=== PATIENT | male | born 1940 | race Caucasian/White ===

== ENCOUNTER 2018-01-10 06:49 | Day surgery (SDC) | payer MEDICARE ==
[~2018-01-10] VITALS: Ht 177.8 cm; Wt 112.7 kg
[~2018-01-10 06:49] MED LIST: ALLO300T2 PO; ASPI-555 PO; HYDR25TA PO; LEVO25TA54 PO; METF10004 PO; METO50TA9 PO; ROSU5TAB PO; SODIUM CHLORIDE 0.9% 1000ML 1,000 ML IV ONE; TERA5CAP4 PO; VALS160T2 PO; WARF-57 PO
[2018-01-10 07:37] LABS: INR 1.22 (0.85-1.15); PROTHROMBIN TIME 12.8 SEC (9.6-11.6)
[2018-01-10 07:39] VITALS: BP 146/83
[2018-01-10] MEDS ORDERED: PROPOFOL 10 MG/ML 20ML VIAL IV ONE (08:32)
[2018-01-10 09:03] VITALS: BP 102/48
== END 2018-01-10 09:34 | disposition home or self-care (01) ==
LOC: DAH 06:49 → ENDO 06:49
PROVIDERS: ATTEND Internal Medicine Gastroenterology
DX: Z09 Encounter for follow-up examination after completed treatment for conditions other than malignant neoplasm (principal); D12.5 Benign neoplasm of sigmoid colon; Z86.010 Personal history of colon polyps; I10 Essential (primary) hypertension; E78.5 Hyperlipidemia, unspecified; I25.10 Atherosclerotic heart disease of native coronary artery without angina pectoris; I48.91 Unspecified atrial fibrillation; Z80.0 Family history of malignant neoplasm of digestive organs; Z68.42 Body mass index [BMI] 45.0-49.9, adult; Z95.0 Presence of cardiac pacemaker; G47.33 Obstructive sleep apnea (adult) (pediatric); M19.90 Unspecified osteoarthritis, unspecified site; E03.9 Hypothyroidism, unspecified; Z79.899 Other long term (current) drug therapy; Z79.01 Long term (current) use of anticoagulants; Z88.0 Allergy status to penicillin; Z98.890 Other specified postprocedural states; Z82.49 Family history of ischemic heart disease and other diseases of the circulatory system; K57.30 Diverticulosis of large intestine without perforation or abscess without bleeding
CPT/HCPCS: 36415; 45385; 85610; 88305; 93005; A4606; J2704; J7030

== ENCOUNTER → 2018-02-09 | Outpatient (CLI) | payer MEDICARE ==
[~2018-02-09] MED LIST changes: -SODIUM CHLORIDE 0.9% 1000ML 1,000 ML IV ONE; -WARF-57 PO
== END | disposition home or self-care (01) ==
LOC: OIH 08:42
PROVIDERS: ATTEND Internal Medicine Cardiovascular Disease
DX: I08.1 Rheumatic disorders of both mitral and tricuspid valves (principal)
CPT/HCPCS: 93306

== ENCOUNTER → 2018-09-09 | Outpatient (CLI) | payer MEDICARE ==
[~2018-09-09] MED LIST changes: +METF-446 PO; -METF10004 PO
== END | disposition home or self-care (01) ==
LOC: RAH 11:28
PROVIDERS: ATTEND Internal Medicine Endocrinology, Diabetes & Metabolism
DX: E04.2 Nontoxic multinodular goiter (principal)
CPT/HCPCS: 76536

== ENCOUNTER → 2019-02-01 | Outpatient (CLI) | payer MEDICARE | END | disposition home or self-care (01) | LOC: SHCH 15:50 | PROVIDERS: ATTEND Internal Medicine Cardiovascular Disease | DX: I08.3 Combined rheumatic disorders of mitral, aortic and tricuspid valves (principal); I27.20 Pulmonary hypertension, unspecified | CPT/HCPCS: 93306 ==

== ENCOUNTER → 2019-02-16 | Outpatient (CLI) | payer MEDICARE | END | disposition home or self-care (01) | LOC: RAH 07:33 | PROVIDERS: ATTEND Family Medicine | DX: K76.9 Liver disease, unspecified (principal); J90 Pleural effusion, not elsewhere classified; K75.9 Inflammatory liver disease, unspecified; J98.11 Atelectasis; R18.8 Other ascites | CPT/HCPCS: 76700 ==

== ENCOUNTER 2019-03-07 05:51 | Day surgery (SDC) | payer MEDICARE ==
[2019-03-03 09:00] VITALS: BP 111/79
[2019-03-03 09:12] LABS: BASOPHILS % (AUTO) 0.7 % (0.0-5.0); EOSINOPHILS % (AUTO) 2.7 % (0.0-8.0); HEMATOCRIT 44.9 % (42-54); MEAN CORPUSCULAR HEMOGLOBIN 30.5 pg (27.0-33.0); MEAN CORPUSCULAR HGB CONC 32.9 g/dL (32.0-36.0); MEAN CORPUSCULAR VOLUME 92.7 fL (79-99); MONOCYTES % (AUTO) 9.5 % (3.0-13.0); NEUTROPHILS % (AUTO) 62.1 % (40.0-77.0); NUCLEATED RED BLOOD CELLS 0.1 % (0.0-0.19); PLATELET COUNT (AUTO) 173 K/uL (130-400); RED BLOOD CELL COUNT(AUTO) 4.84 MIL/uL (4.50-6.20); RED CELL DISTRIBUTION WIDTH 18.5 % (11.0-15.5); WHITE BLOOD COUNT (AUTO) 6.8 K/uL (4.8-10.8)
[2019-03-03 09:12] LABS: APPEARANCE,URINE Clear (CLEAR); BILIRUBIN,URINE Negative (NEGATIVE); COLOR,URINE Dark Yellow (YELLOW); GLUCOSE, URINE (UA) 500 mg/dL (NEGATIVE); KETONES,URINE Negative (NEGATIVE); LEUKOCYTE ESTERASE ,URINE Small (NEGATIVE); NITRATE,URINE Positive (NEGATIVE); OCCULT BLOOD,URINE Small (NEGATIVE); PH,URINE 5.5 (5.0-8.0); PROTEIN,URINE 300 mg/dL (NEGATIVE)
[2019-03-03 09:19] LABS: CREATININE 1.5 mg/dL (0.5-1.5); POTASSIUM 4.4 mmol/L (3.5-5.1)
[2019-03-03 09:25] LABS: INR 3.29 (0.85-1.15); PARTIAL THROMBOPLASTIN TIME 40.4 SEC (26.3-35.5); PROTHROMBIN TIME 33.7 SEC (9.6-11.6)
[2019-03-03 09:49] LABS: BACTERIA,URINE Moderate /HPF (None Seen)
--- NOTE | 2019-03-03 16:44 | NUR ---
ABNORMAL LABS REPORTED ABNORMAL LABS TO ANA GARCIA FOR DR. HERNANDEZ BUN, CREATINE, PT, INR, PTT, UA. ORDERS TO REPEAT PT, INR, PTT AND UA MORNING OF PROCEDURE. Addendum: 03/03/19 at 1649 by YAMILA JIMENEZ RN RN SEND UA FOR CULTURE
[2019-03-07] VITALS (12 sets, daily range): BP systolic 119–137; BP diastolic 8–94
[~2019-03-07] VITALS: Ht 179.1 cm; Wt 109.2 kg
[~2019-03-07 05:51] MED LIST changes: -ASPI-555 PO; +EMPA10TA PO; +FURO20TA4 PO; +GLIM4TAB3 PO; -HYDR25TA PO; +IRBE150T27 PO; -LEVO25TA54 PO; +LEVO50TA11 PO; +MAGN500C15 PO; +METO100T7 PO; -METO50TA9 PO; +POTA10TA11 PO; +ROSU10TA22 PO; -ROSU5TAB PO; +SODIUM CHLORIDE 0.9% 1000ML 1,000 ML IV SCH; -TERA5CAP4 PO; -VALS160T2 PO; +VITAMIN B COMP PO; +WARF-57 PO
[2019-03-07 06:28] LABS: INR 1.39 (0.85-1.15); PARTIAL THROMBOPLASTIN TIME 31.5 SEC (26.3-35.5); PROTHROMBIN TIME 14.5 SEC (9.6-11.6)
[2019-03-07 06:57] LABS: APPEARANCE,URINE Clear (CLEAR); BILIRUBIN,URINE Negative (NEGATIVE); COLOR,URINE Yellow (YELLOW); GLUCOSE, URINE (UA) 250 mg/dL (NEGATIVE); KETONES,URINE Negative (NEGATIVE); LEUKOCYTE ESTERASE ,URINE Negative (NEGATIVE); NITRATE,URINE Negative (NEGATIVE); OCCULT BLOOD,URINE Negative (NEGATIVE); PROTEIN,URINE Trace mg/dL (NEGATIVE); UROBILINOGEN,URINE 0.2 mg/dL (0.2-1.0)
[2019-03-07] MEDS ORDERED: WARF-57 PO (07:15)
[2019-03-07] MEDS ORDERED: WARF7.5T49 PO (07:15)
[2019-03-07] MEDS ORDERED: DOCU100T PO (07:15)
[2019-03-07] MEDS ORDERED: MULT-1077 PO (07:15)
[2019-03-07 07:22] LABS: RBC,URINE 0-1 /HPF (0-1); WBC,URINE 0-1 /HPF (0-1)
[2019-03-07 07:23] LABS: BACTERIA,URINE None Seen /HPF (None Seen); SQUAMOUS EPITHELIAL CELL,UR 0-2 /HPF (0-2)
--- NOTE | 2019-03-07 08:48 | NUR ---
REPEAT LABS ANA COCHRAN NOTIFIED PT'S RPT UA FROM TODAY IS NEGATIVE FOR NITRATES AND LEUKEST, URINE CULTURE FROM 03/03/19 FINAL RESULTS GRAM NEG RODS. NO FURTHER ORDERS GIVEN.
--- NOTE | 2019-03-07 09:40 | NUR ---
PT/PTT PT/PTT [place] TODAY REPORTED TO DR. Lamont HERNANDEZ PT 14.5, INR 1.39. NO FURTHER ORDERS, MAY PROCEED WITH PLANNED PROCEDURE.
[2019-03-07] MEDS ORDERED: MIDAZOLAM HCL 1 MG/ML 2ML VIAL ONE ×2 (12:06→12:33)
[2019-03-07] MEDS ORDERED: CEFAZOLIN SODIUM 1 GM VIAL ONE (12:06)
[2019-03-07] MEDS ORDERED: MEPERIDINE-PF 25 MG/ML SYG ONE ×2 (12:06→12:33)
[2019-03-07] MEDS ORDERED: LIDOCAINE HCL 1% MDV 50ML VIAL ONE (12:06)
[2019-03-07] MEDS ORDERED: BUPIVACAINE/PF 0.25% 30ML VIAL IJ ONE (12:06)
--- NOTE | 2019-03-07 12:08 | NUR ---
TO CHANNEL SPECIALIST PT TAKEN TO CHANNEL SPECIALIST VIA BED BY NAEEM MARIE. PT STABLE. VOIDED PRIOR TO TRANSFER.
[2019-03-07] MEDS ORDERED: VANCOMYCIN 1GM+NS 250ML 500 ML IV ONE (12:20)
[2019-03-07] MEDS ORDERED: THROMBIN-JMI 5000 UNIT/VIAL TP ONE (12:52)
[2019-03-07] MEDS ORDERED: DEXTROSE 50%-WATER 50 ML DISP.SYRIN IV PRN (13:45)
[2019-03-07] MEDS ORDERED: ONDANSETRON HCL 4 MG/2 ML VIAL IV PRN (13:45)
[2019-03-07] MEDS ORDERED: ACETAMINOPHEN-CODEINE 300/30MG TAB PO PRN ×2 (13:45)
--- NOTE | 2019-03-07 14:05 | NUR ---
RECEIVE PT RECEIVED FROM COSMETICS MACHINE OPERATOR VIA BED AWAKE ALERT ORIENTED, PRESSURE DRESSING TO LEFT CHEST IN PLACE, GAUZE, OPSITE DRESSING IN PLACE, DRY AND INTACT, VERY SCANT LIGHT PINKISH DISCHARGE, SITE SOFT, NO BLEEDING, NO HEMATOMA OR BRUISING NOTED. ICE PACK PLACED, KEPT PT ON BEDREST, HEAD OF BED ELEVATED.
[2019-03-07] MEDS ORDERED: PHARMACY COMMUNICATION MISC SCH (15:00)
--- NOTE | 2019-03-07 16:00 | NUR ---
COUMADIN PER DR. HERNANDEZ, PT MAY RESUME COUMADIN TOMORROW.
[2019-03-07] MEDS ORDERED: INSULIN HUMULIN R 100 UNIT/ML 3ML SQ SCH (16:30)
[2019-03-07] MEDS ORDERED: LEVOFLOXACIN 500 MG/D5W 100 ML 100 ML IV SCH (18:00)
--- NOTE | 2019-03-07 18:20 | NUR ---
ACTIVITY PT ASSISTED TO BATHROOM, AMBULATED WITHOUT ANY PROBLEMS, VOIDED CLEAR YELLOW URINE, GOOD AMOUNT.
--- NOTE | 2019-03-07 18:45 | NUR ---
PRESSURE DRESSING REMOVED PRESSURE DRESSING TO LEFT CHEST REMOVED, GAUZE/OPSITE DRESSING REMAINS DRY AND INTACT, NO BLEEDING, NO HEMATOMA NOTED, SITE SOFT. PT INSTRUCTED NOT TO ELEVATE LEFT ARM ABOVE SHOULDER LEVEL, NOT TO USE LEFT ARM FOR HEAVY LIFTING UNTIL CLEARED BY DR. HERNANDEZ. PT VERBALIZED UNDERSTANDING.
--- NOTE | 2019-03-07 18:55 | NUR ---
DISCHARGE PT DISCHARGED VIA WHEELCHAIR WITH . PT STABLE. NO COMPLAINTS MADE. BI-V INCISION SITE TO LEFT CHEST SOFT, DRESSING DRY AND INTACT, NO BLEEDING NO HEMATOMA NOTED. DISCHARGE INSTRUCTIONS GIVEN TO . ALSO INSTRUCTED TO FOLLOW DR. HERNANDEZ'S VERBAL INSTRUCTIONS ON RESTRICTIONS TO LEFT ARM. VERBALIZED UNDERSTANDING.
== END 2019-03-07 18:55 | disposition home or self-care (01) ==
LOC: DAH 05:51
PROVIDERS: ATTEND Internal Medicine Cardiovascular Disease
DX: T82.121A Displacement of cardiac pulse generator (battery), initial encounter (principal); I48.91 Unspecified atrial fibrillation; I11.0 Hypertensive heart disease with heart failure; I50.9 Heart failure, unspecified; I25.10 Atherosclerotic heart disease of native coronary artery without angina pectoris; E78.5 Hyperlipidemia, unspecified; Z72.89 Other problems related to lifestyle; Z82.49 Family history of ischemic heart disease and other diseases of the circulatory system; Z83.3 Family history of diabetes mellitus; Z87.891 Personal history of nicotine dependence; Z79.84 Long term (current) use of oral hypoglycemic drugs; Z95.0 Presence of cardiac pacemaker; Z79.01 Long term (current) use of anticoagulants; Y65.8 Other specified misadventures during surgical and medical care; Y92.89 Other specified places as the place of occurrence of the external cause
CPT/HCPCS: 33223; 36415 ×2; 80048; 81001 ×2; 82948 ×2; 85025; 85610 ×2; 85730 ×2; 87077; 87088; 87186; 93005; A4606; J1956; J2175 ×2; J2250 ×2; J3370; J3490 ×3; J7030; 36591; 99156; 99157; J0690

== ENCOUNTER 2019-08-08 05:44 | Day surgery (SDC) | payer MEDICARE ==
[~2019-08-08] VITALS: Ht 177.8 cm; Wt 97.0 kg
[~2019-08-08 05:44] MED LIST changes: +DOCU100T PO; -GLIM4TAB3 PO; +GLIM4TAB5 PO; +MULT-1077 PO; -ROSU10TA22 PO; -SODIUM CHLORIDE 0.9% 1000ML 1,000 ML IV SCH; +WARF7.5T49 PO; +ZARO5 PO
[2019-08-08] MEDS ORDERED: SODIUM CHLORIDE 0.9% 1000ML 1,000 ML IV ONE (06:14)
[2019-08-08 06:36] LABS: BASOPHILS % (AUTO) 0.4 % (0.0-5.0); EOSINOPHILS % (AUTO) 2.9 % (0.0-8.0); HEMATOCRIT 42.7 % (42-54); LYMPHOCYTES % (AUTO) 28.1 % (21.0-51.0); MEAN CORPUSCULAR HEMOGLOBIN 31.7 pg (27.0-33.0); MEAN CORPUSCULAR HGB CONC 33.2 g/dL (32.0-36.0); MEAN CORPUSCULAR VOLUME 95.7 fL (79-99); MONOCYTES % (AUTO) 10.1 % (3.0-13.0); NEUTROPHILS % (AUTO) 58.5 % (40.0-77.0); PLATELET COUNT (AUTO) 178 K/uL (130-400); RED BLOOD CELL COUNT(AUTO) 4.47 MIL/uL (4.50-6.20); WHITE BLOOD COUNT (AUTO) 7.2 K/uL (4.8-10.8)
[2019-08-08 06:40] VITALS: BP 102/70
[2019-08-08 06:55] LABS: INR 1.06 (0.85-1.15); PROTHROMBIN TIME 11.1 SEC (9.6-11.6)
[2019-08-08] MEDS ORDERED: PROPOFOL 10 MG/ML 20ML VIAL IV ONE (07:18)
[2019-08-08 07:25] VITALS: BP 97/63
[2019-08-08 07:30] VITALS: BP 97/65
[2019-08-08 07:35] VITALS: BP 100/65
[2019-08-08 07:40] VITALS: BP 101/58
[2019-08-08 07:45] VITALS: BP 101/59
--- NOTE | 2019-08-08 07:55 | NUR ---
DC PT DC HOME VIA WC, NO DISTRESS NOTED , DENIED ANY PAIN OR DISCOMFORTS. PT ACCOMPANIED BY SPOUSE. DC INTRUCTIONS REINFORCED TO CONTINUE HOME MEDS. TO RESUME COUMADIN IN 24 HRS., INSTRUCTED ON NEW MED PRESCRIBED AND TO F/U WITH DR. PLEITEZ. PT / SPOUSE VERBALIZED UNDERSTANDING.
== END 2019-08-08 07:55 | disposition home or self-care (01) ==
LOC: ENDO 05:44 → DAH 05:44 → ENDO 07:55
PROVIDERS: ATTEND Internal Medicine Gastroenterology
DX: K74.60 Unspecified cirrhosis of liver (principal); K29.50 Unspecified chronic gastritis without bleeding; K25.9 Gastric ulcer, unspecified as acute or chronic, without hemorrhage or perforation; R18.8 Other ascites; K59.01 Slow transit constipation; E03.9 Hypothyroidism, unspecified; M19.90 Unspecified osteoarthritis, unspecified site; I49.5 Sick sinus syndrome; M10.9 Gout, unspecified; E11.9 Type 2 diabetes mellitus without complications; E78.5 Hyperlipidemia, unspecified; I48.20 Chronic atrial fibrillation, unspecified; E11.22 Type 2 diabetes mellitus with diabetic chronic kidney disease; I13.0 Hypertensive heart and chronic kidney disease with heart failure and stage 1 through stage 4 chronic kidney disease, or unspecified chronic kidney disease; N18.9 Chronic kidney disease, unspecified; I50.9 Heart failure, unspecified; Z86.010 Personal history of colon polyps; Z90.89 Acquired absence of other organs; Z95.0 Presence of cardiac pacemaker; Z85.46 Personal history of malignant neoplasm of prostate
CPT/HCPCS: 36415; 43239; 82948 ×2; 85025; 85610; 88305; A4215; A4221; A4222; A4223; A4606; A4615; A4663; J2704; J7030

== ENCOUNTER → 2019-10-09 | Outpatient (CLI) | payer MEDICARE | END | disposition home or self-care (01) | LOC: RAH 10:22 | PROVIDERS: ATTEND Internal Medicine Endocrinology, Diabetes & Metabolism | DX: E04.2 Nontoxic multinodular goiter (principal) | CPT/HCPCS: 76536 ==

== ENCOUNTER → 2020-11-27 | Outpatient (CLI) | payer MEDICARE ==
[~2020-11-27] MED LIST changes: +GLIM4TAB36 PO; -GLIM4TAB5 PO; +IRBE150T24 PO; -IRBE150T27 PO
== END | disposition home or self-care (01) ==
LOC: SHCH 11:08
PROVIDERS: ATTEND Internal Medicine Cardiovascular Disease
DX: I08.3 Combined rheumatic disorders of mitral, aortic and tricuspid valves (principal); I65.23 Occlusion and stenosis of bilateral carotid arteries
CPT/HCPCS: 93306; 93356; 93880

== ENCOUNTER 2020-12-18 06:19 | Day surgery (SDC) | payer MEDICARE ==
[2020-12-16 09:39] VITALS: BP 105/71
[2020-12-16 12:29] LABS: APPEARANCE,URINE Clear (CLEAR); BILIRUBIN,URINE Negative (NEGATIVE); COLOR,URINE Yellow (YELLOW); GLUCOSE, URINE (UA) 500 mg/dL (NEGATIVE); KETONES,URINE Negative (NEGATIVE); LEUKOCYTE ESTERASE ,URINE Trace (NEGATIVE); NITRATE,URINE Negative (NEGATIVE); OCCULT BLOOD,URINE Negative (NEGATIVE); PROTEIN,URINE Negative (NEGATIVE); UROBILINOGEN,URINE 0.2 mg/dL (0.2-1.0)
[2020-12-16 12:51] LABS: INR 1.19 (0.85-1.15); PROTHROMBIN TIME 12.8 SEC (9.6-11.6)
[2020-12-16 12:52] LABS: PARTIAL THROMBOPLASTIN TIME 28.8 SEC (26.3-35.5)
[2020-12-16 13:03] LABS: BASOPHILS % (AUTO) 0.2 % (0.0-5.0); EOSINOPHILS % (AUTO) 1.5 % (0.0-8.0); HEMATOCRIT 43.8 % (42-54); LYMPHOCYTES % (AUTO) 19.4 % (21.0-51.0); MEAN CORPUSCULAR HEMOGLOBIN 31.7 pg (27.0-33.0); MEAN CORPUSCULAR HGB CONC 33.1 g/dL (32.0-36.0); MEAN CORPUSCULAR VOLUME 95.8 fL (79-99); MONOCYTES % (AUTO) 8.2 % (3.0-13.0); NEUTROPHILS % (AUTO) 70.1 % (40.0-77.0); PLATELET COUNT (AUTO) 208 K/uL (130-400); RED BLOOD CELL COUNT(AUTO) 4.57 MIL/uL (4.50-6.20); RED CELL DISTRIBUTION WIDTH 14.7 % (11.0-15.5); WHITE BLOOD COUNT (AUTO) 8.3 K/uL (4.8-10.8)
[2020-12-16 13:07] LABS: CREATININE 1.8 mg/dL (0.5-1.5); POTASSIUM 4.9 mmol/L (3.5-5.1)
[2020-12-16 13:10] LABS: BACTERIA,URINE Few /HPF (None Seen); RBC,URINE 0-1 /HPF (0-1); SQUAMOUS EPITHELIAL CELL,UR 0-2 /HPF (0-2)
[~2020-12-18] VITALS: Ht 177.8 cm; Wt 103.2 kg
[2020-12-18] VITALS (10 sets, daily range): BP systolic 101–118; BP diastolic 63–74
[~2020-12-18 06:19] MED LIST changes: -IRBE150T24 PO; +LACT10SO62 PO; -MULT-1077 PO; +OMEP40CA13 PO; +ROSU10TA22 PO; +SPIR50TA PO; -ZARO5 PO
[2020-12-18] MEDS ORDERED: SODIUM CHLORIDE 0.9% 1000ML 1,000 ML IV ONE (06:25)
[2020-12-18] MEDS ORDERED: MEPERIDINE-PF 25 MG/ML SYG ONE (07:11)
[2020-12-18] MEDS ORDERED: IOHEXOL-350 50ML VIAL IV ONE (07:11)
[2020-12-18] MEDS ORDERED: SODIUM BICARB 50MEQ 50ML VIAL 50 ML ONE (07:11)
[2020-12-18] MEDS ORDERED: NITROGLYCERIN 2 MG/VIAL VIAL IV ONE (07:11)
[2020-12-18] MEDS ORDERED: IOHEXOL 350 MG/ML 100ML INFUS..BTL IV ONE (07:11)
[2020-12-18] MEDS ORDERED: HEPARIN SODIUM 1000UNIT/ML 10ML VIAL ONE (07:11)
[2020-12-18] MEDS ORDERED: LIDOCAINE HCL 2% 20ML ONE (07:12)
[2020-12-18] MEDS ORDERED: MIDAZOLAM HCL 1 MG/ML 2ML VIAL ONE (07:12)
[2020-12-18] MEDS ORDERED: SODIUM CHLORIDE 0.9% 1000ML 1,000 ML IV SCH ×2 (08:00→09:00)
[2020-12-18] MEDS ORDERED: DEXTROSE 50%-WATER 50 ML DISP.SYRIN IV PRN (09:00)
[2020-12-18] MEDS ORDERED: GLUCAGON 1MG KIT 1 MG ML IM PRN (09:00)
[2020-12-18] MEDS ORDERED: INSULIN HUMULIN R 100 UNIT/ML 3ML SQ SCH (11:30)
== END 2020-12-18 12:55 | disposition home or self-care (01) ==
LOC: DAH 06:19
PROVIDERS: ATTEND Internal Medicine Cardiovascular Disease
DX: I34.0 Nonrheumatic mitral (valve) insufficiency (principal); I13.0 Hypertensive heart and chronic kidney disease with heart failure and stage 1 through stage 4 chronic kidney disease, or unspecified chronic kidney disease; I50.42 Chronic combined systolic (congestive) and diastolic (congestive) heart failure; N18.30 Chronic kidney disease, stage 3 unspecified; I48.20 Chronic atrial fibrillation, unspecified; M10.9 Gout, unspecified; I42.8 Other cardiomyopathies; G47.33 Obstructive sleep apnea (adult) (pediatric); Z88.0 Allergy status to penicillin; Z79.84 Long term (current) use of oral hypoglycemic drugs; Z79.01 Long term (current) use of anticoagulants; Z79.899 Other long term (current) drug therapy; Z98.890 Other specified postprocedural states; Z90.79 Acquired absence of other genital organ(s); Z95.0 Presence of cardiac pacemaker
CPT/HCPCS: 36415; 71045; 80048; 81001; 82948 ×2; 85025; 85610; 85730; 87077; 87088; 87186; 93005; 93460; A4215; A4216; A4221; A4222; A4223 ×3; A4606; A4663; C1760; C1769 ×3; C1893; C1894 ×2; J1644 ×2; J2175; J2250; J3490 ×3; J7030; Q9965; Q9967 ×2; 96360; 96361; 99156; 99157

== ENCOUNTER 2021-01-07 06:34 | Day surgery (SDC) | payer MEDICARE ==
[~2021-01-07 06:34] MED LIST changes: -OMEP40CA13 PO; +OMEP40CA21 PO; +POTA-183 PO; -POTA10TA11 PO
[2021-01-07 06:37] VITALS: BP 119/69
[2021-01-07] MEDS ORDERED: 0.9%NACL 1000ML 1,000 ML IV ONE (06:49)
[2021-01-07] MEDS ORDERED: IOHEXOL 350 MG/ML 100ML INFUS..BTL IV ONE (11:13)
[2021-01-07 12:30] VITALS: BP 109/69
== END 2021-01-07 12:40 | disposition home or self-care (01) ==
LOC: DAH 06:34 → EDSTATUS 07:00 → DAH 12:40
PROVIDERS: ATTEND Internal Medicine Cardiovascular Disease
DX: I35.0 Nonrheumatic aortic (valve) stenosis (principal); I70.0 Atherosclerosis of aorta; J98.11 Atelectasis
CPT/HCPCS: 74174; 75574; 82948; A4215; A4216; A4221; A4222; A4223 ×3; A4606; A4663; J7030; Q9967

== ENCOUNTER → 2021-04-30 | Outpatient (CLI) | payer MEDICARE ==
[~2021-04-30] MED LIST changes: -POTA-183 PO; +POTA10TA11 PO
== END | disposition home or self-care (01) ==
LOC: SHCH 07:59
PROVIDERS: ATTEND Internal Medicine Cardiovascular Disease
DX: I08.3 Combined rheumatic disorders of mitral, aortic and tricuspid valves (principal); I48.0 Paroxysmal atrial fibrillation; R55 Syncope and collapse; Z95.2 Presence of prosthetic heart valve
CPT/HCPCS: 93306; 93356

== ENCOUNTER → 2021-09-16 | Outpatient (CLI) | payer MEDICARE ==
[~2021-09-16] MED LIST changes: +POTA-183 PO; -POTA10TA11 PO
== END | disposition home or self-care (01) ==
LOC: RAH 10:28
PROVIDERS: ATTEND Internal Medicine Endocrinology, Diabetes & Metabolism
DX: E04.2 Nontoxic multinodular goiter (principal)
CPT/HCPCS: 76536

== ENCOUNTER 2022-02-10 05:42 | Day surgery (SDC) | payer MEDICARE ==
[2022-02-06 10:18] LABS: BASOPHILS % (AUTO) 0.4 % (0.0-5.0); EOSINOPHILS % (AUTO) 2.3 % (0.0-8.0); HEMATOCRIT 45.2 % (42-54); LYMPHOCYTES % (AUTO) 17.4 % (21.0-51.0); MEAN CORPUSCULAR HGB CONC 32.1 g/dL (32.0-36.0); MEAN CORPUSCULAR VOLUME 96.8 fL (79-99); MONOCYTES % (AUTO) 8.7 % (3.0-13.0); NEUTROPHILS % (AUTO) 70.7 % (40.0-77.0); PLATELET COUNT (AUTO) 179 K/uL (130-400); RED BLOOD CELL COUNT(AUTO) 4.67 MIL/uL (4.50-6.20); RED CELL DISTRIBUTION WIDTH 15.4 % (11.0-15.5); WHITE BLOOD COUNT (AUTO) 7.7 K/uL (4.8-10.8)
[2022-02-06 10:38] LABS: CREATININE 1.5 mg/dL (0.5-1.5); POTASSIUM 4.5 mmol/L (3.5-5.1)
[2022-02-06 11:30] LABS: INR 2.22 (0.85-1.15); PROTHROMBIN TIME 22.5 SEC (9.6-11.6)
[2022-02-06 11:31] LABS: PARTIAL THROMBOPLASTIN TIME 36.8 SEC (26.3-35.5)
[2022-02-09 08:56] VITALS: BP 126/65
[~2022-02-10] VITALS: Ht 177.8 cm; Wt 108.5 kg
[2022-02-10] VITALS (9 sets, daily range): BP systolic 106–116; BP diastolic 66–74
[~2022-02-10 05:42] MED LIST changes: -FURO20TA4 PO; +FURO40TA7 PO; -MAGN500C15 PO; +MAGN500C4 PO; -METO100T7 PO; +METO50TA9 PO; -POTA-183 PO; +VITAMIN D PO; -WARF7.5T49 PO
[2022-02-10] MEDS ORDERED: 0.9%NACL 1000ML 1,000 ML IV ONE (06:08)
[2022-02-10 06:49] LABS: INR 1.18 (0.85-1.15); PROTHROMBIN TIME 12.7 SEC (9.6-11.6)
[2022-02-10] MEDS ORDERED: BUPIVACAINE/PF 0.25% 30ML VIAL IJ ONE (07:05)
[2022-02-10] MEDS ORDERED: VANCOMYCIN 1G/250ML KIT 500 ML IV ONE (07:06)
[2022-02-10] MEDS ORDERED: LIDOCAINE HCL 1% MDV 50ML VIAL ONE (07:06)
[2022-02-10] MEDS ORDERED: MIDAZOLAM HCL 1 MG/ML 2ML VIAL ONE ×3 (07:06→08:23)
[2022-02-10] MEDS ORDERED: MEPERIDINE-PF 25 MG/ML SYG ONE ×3 (07:07→08:22)
[2022-02-10] MEDS ORDERED: THROMBIN-JMI 5000 UNIT/VIAL TP ONE (08:03)
[2022-02-10] MEDS ORDERED: ONDANSETRON 4MG INJ IV PRN (09:30)
[2022-02-10] MEDS ORDERED: DEXTROSE 50%-WATER 50 ML DISP.SYRIN IV PRN (09:30)
[2022-02-10] MEDS ORDERED: ACETAMINOPHEN 325 MG TAB PO PRN ×2 (09:30)
[2022-02-10] MEDS ORDERED: INSULIN HUMULIN R 100 UNIT/ML 3ML SQ SCH (11:30)
== END 2022-02-10 12:21 | disposition home or self-care (01) ==
LOC: DAH 05:42
PROVIDERS: ATTEND Internal Medicine Cardiovascular Disease
DX: Z45.02 Encounter for adjustment and management of automatic implantable cardiac defibrillator (principal); I42.0 Dilated cardiomyopathy; I48.20 Chronic atrial fibrillation, unspecified; I49.5 Sick sinus syndrome; I35.0 Nonrheumatic aortic (valve) stenosis; I11.0 Hypertensive heart disease with heart failure; I50.42 Chronic combined systolic (congestive) and diastolic (congestive) heart failure; Z79.01 Long term (current) use of anticoagulants; Z79.899 Other long term (current) drug therapy; Z98.890 Other specified postprocedural states
CPT/HCPCS: 33264; 36415 ×2; 80048; 82948 ×2; 85025; 85610 ×2; 85730 ×2; 92960; 93005; A4215; A4216; A4221; A4222; A4223 ×3; A4606; A4663; C1882; J2175 ×3; J2250 ×3; J3370; J3490 ×3; J7030; 99156; 99157

== ENCOUNTER → 2022-11-21 | Outpatient (CLI) | payer MEDICARE ==
[~2022-11-21] MED LIST changes: -LACT10SO62 PO; +LACT10SO95 PO
== END | disposition home or self-care (01) ==
LOC: SHCH 12:29
PROVIDERS: ATTEND Internal Medicine Cardiovascular Disease
DX: I08.1 Rheumatic disorders of both mitral and tricuspid valves (principal); I87.2 Venous insufficiency (chronic) (peripheral); I27.20 Pulmonary hypertension, unspecified; R06.00 Dyspnea, unspecified; Z95.810 Presence of automatic (implantable) cardiac defibrillator
CPT/HCPCS: 93306; 93970

== ENCOUNTER → 2023-11-16 | Outpatient (CLI) | payer MEDICARE | END | disposition home or self-care (01) | LOC: RAH 07:33 | PROVIDERS: ATTEND Family Medicine | DX: G31.9 Degenerative disease of nervous system, unspecified (principal); R22.0 Localized swelling, mass and lump, head | CPT/HCPCS: 70450 ==

== ENCOUNTER → 2024-04-25 | Outpatient (CLI) | payer MEDICARE | END | disposition home or self-care (01) | LOC: SHCH 12:48 | PROVIDERS: ATTEND Internal Medicine Cardiovascular Disease | DX: I65.23 Occlusion and stenosis of bilateral carotid arteries (principal) | CPT/HCPCS: 93880 ==

== ENCOUNTER → 2024-05-17 | Outpatient (CLI) | payer MEDICARE | END | disposition home or self-care (01) | LOC: LAB 12:49 | PROVIDERS: ATTEND Internal Medicine Cardiovascular Disease | DX: I10 Essential (primary) hypertension (principal) | CPT/HCPCS: 36415; 83880 ==

== ENCOUNTER → 2024-05-25 | Outpatient (CLI) | payer MEDICARE ==
[2024-05-25 16:46] LABS: ALBUMIN 3.7 g/dL (3.5-5.0); BILIRUBIN,TOTAL 0.6 mg/dL (0.2-1.0); CREATININE 2.3 mg/dL (0.5-1.3); MAGNESIUM 2.3 mg/dL (1.80-2.40); POTASSIUM 4.8 mmol/L (3.5-5.1); TOTAL PROTEIN, SERUM 7.9 g/dL (6.0-8.3)
== END | disposition home or self-care (01) ==
LOC: LAB 14:21
PROVIDERS: ATTEND Internal Medicine Cardiovascular Disease
DX: I10 Essential (primary) hypertension (principal); I42.0 Dilated cardiomyopathy
CPT/HCPCS: 36415; 80053; 83735; 83880

== ENCOUNTER → 2024-05-29 | Outpatient (CLI) | payer MEDICARE | END | disposition home or self-care (01) | LOC: RAH 12:35 | PROVIDERS: ATTEND Family Medicine | DX: M16.11 Unilateral primary osteoarthritis, right hip (principal); M48.061 Spinal stenosis, lumbar region without neurogenic claudication; M47.26 Other spondylosis with radiculopathy, lumbar region; M54.42 Lumbago with sciatica, left side | CPT/HCPCS: 72131; 73700 ==

== ENCOUNTER → 2024-06-02 | Outpatient (CLI) | payer MEDICARE ==
[2024-06-02 15:40] LABS: ALBUMIN 3.9 g/dL (3.5-5.0); BILIRUBIN,TOTAL 0.7 mg/dL (0.2-1.0); CREATININE 1.7 mg/dL (0.5-1.3); POTASSIUM 4.9 mmol/L (3.5-5.1); TOTAL PROTEIN, SERUM 8.2 g/dL (6.0-8.3)
== END | disposition home or self-care (01) ==
LOC: LAB 13:37
PROVIDERS: ATTEND Internal Medicine Cardiovascular Disease
DX: I10 Essential (primary) hypertension (principal); I42.0 Dilated cardiomyopathy
CPT/HCPCS: 36415; 80053; 83880

== ENCOUNTER → 2024-06-30 | Outpatient (CLI) | payer MEDICARE | END | disposition home or self-care (01) | LOC: SHCH 12:09 | PROVIDERS: ATTEND Internal Medicine Cardiovascular Disease | DX: I10 Essential (primary) hypertension (principal) | CPT/HCPCS: 93306 ==

== ENCOUNTER → 2024-09-14 | Outpatient (CLI) | payer MEDICARE ==
[~2024-09-14] MED LIST changes: +LACT-451 PO; -LACT10SO95 PO
--- NOTE | 2024-09-14 10:38 | HMCIMG ---
US THYROID/NECK HISTORY: Goiter COMPARISON: 09/16/2021 TECHNIQUE: Thyroid ultrasound study was performed. FINDINGS: Right thyroid lobe measures 3.1 x 1.2 x 1.1 cm. Left thyroid lobe measures 3.2 x 1.2 x 1.1 cm. There is right midpole thyroid nodule measuring 12 mm. There are left thyroid cyst measuring 4 mm and 3 mm each. IMPRESSION: 1. Right mid pole thyroid nodule measuring 4 mm. Left thyroid cyst. These were present on previous study.
== END | disposition home or self-care (01) ==
LOC: RAH 10:05
PROVIDERS: ATTEND Internal Medicine Endocrinology, Diabetes & Metabolism
DX: E04.2 Nontoxic multinodular goiter (principal)
CPT/HCPCS: 76536

== ENCOUNTER → 2025-06-06 | Outpatient (CLI) | payer MEDICARE ==
[~2025-06-06] MED LIST changes: +ALBUTEROL 0.083% 2.5 MG/3 ML INH IH ONE
== END | disposition home or self-care (01) ==
LOC: RESP 12:30
PROVIDERS: ATTEND Internal Medicine Cardiovascular Disease
DX: R06.00 Dyspnea, unspecified (principal)
CPT/HCPCS: 94060